=== PATIENT | female | born 1965 | race Caucasian/White ===

== ENCOUNTER 2016-06-15 10:29 | Emergency (ER) | payer BC ==
[2016-06-15 10:39] VITALS: TEMP 97.6; BMI 47.1
--- NOTE | 2016-06-15 10:57 | EDPRACDOC ---
- General Information Chief Complaint: Neuro Symptoms/Deficits Stated Complaint: SYNCOPAL Time Seen by Provider: 06/15/16 10:31 Information Source: Patient, [employer] Mode Of Arrival: Ambulance Home Medications: Home Medications Albuterol Sulfate 2 puff IH Q4-6H PRN 03/31/13 Cholecalciferol [Vitamin D3 (cholecalciferol)] 1,000 units PO BID 03/31/13 Omeprazole [Prilosec] 40 mg PO BID 03/31/13 Pravastatin [Pravachol] 40 mg PO HS 03/31/13 Duloxetine [Cymbalta] 30 mg PO TID 12/24/15 Fluticasone/Vilanterol [Breo Ellipta 100-25 Mcg INH] 1 each IH DAILY 12/24/15 Hydrocodone/Acetaminophen [Hydrocodon-Acetaminophn 10-325] 1 tab PO TID PRN Oxybutynin [Ditropan] 5 mg PO BID 12/24/15 Albuterol Sulfate Nebs [Proventil, Ventolin] 3 ml INH BID PRN 12/29/15 Aspirin [Aspirin EC] 81 mg PO DAILY 06/15/16 Clonazepam [Klonopin] 1 mg PO .SEE COMMENTS 06/15/16 Cyclobenzaprine HCl [Amrix] 15 mg PO DAILY 06/15/16 Gabapentin [Neurontin] 300 mg PO TID 06/15/16 Ibuprofen Tablet [Motrin] 800 mg PO TID PRN 06/15/16 Nebulizer [Erapid Nebulizer] 1 each MC .UNKNOWN 06/15/16 Topiramate [Topamax] 150 mg PO HS 06/15/16 Allergies/Adverse Reactions: Allergies Allergy/AdvReac Type Severity Reaction Status Date / Time No Known Allergies Allergy Verified 06/15/16 10:39 - History of Present Illness Onset: THIS AM Medications/Treatment [employer] REPRES[employer]IVE Meds/Treatments Given O2 via Cannula EMS Treatment ALS IV Yes HPI: PT PRESENTS AFTER SYNCOPAL EVENT WHILE AT HER PCP'S OFFICE. SHE HAS BEEN FEELING FATIGUED FOR QUITE A NUMBER OF MONTHS PRIOR TO THIS. RECENTLY HER ASPIRIN AND BETA OTILIO WERE STOPPED BY CARDIOLOGY. Syncopal phase:: Reports: At Rest Postsyncopal phase:: Reports: Rapid recovery Associated Signs/Symptoms: Denies: Abdominal pain, Chest pain, Diarrhea, Fever, Vomiting - Treatment Prior to ED Arrival Reported Medications/Treatment [employer] REPRESENT[employer]IVE Meds/Treatments Given O2 via Cannula EMS Treatment ALS IV Yes ED Past Medical History - History Reviewed Yes Nurses notes reviewed and agree except as marked - Patient Medical History Cardiac History: Reports: Hypertension, Hypercholesterolemia Respiratory History: Reports: Asthma, COPD. Denies: Pneumonia GI/ History: Reports: Kidney Stones, Gastroesophageal Reflux Musculoskeletal History: Reports: Arthritis Psychological History: Reports: Depression, Anxiety Systemic History: Denies: Cancer, Anemia Surgical History: Reports: Hysterectomy - Family Medical History Reports: Diabetes (MATERNAL FAMILY). Denies: Hypertension, Cancer, Stroke, Cardiac Disorders - Social Medical History Smoking Status: Heavy tobacco smoker (5 or more cigarettes/day or daily pipe/ cigar) Lives In: Home EDM Review of Systems - Review of Systems ROS Negative Except as Marked: Yes All systems reviewed and were negative except as marked Constitutional: Fatigue, Weakness. negative: Fever Respiratory: negative: Cough, Shortness of Breath, Wheezing Cardiovascular: Syncope. negative: Chest Pain Gastrointestinal: negative: Pain, Vomiting - Physical Exam Constitutional: Alert Oriented to: Time, Person, Place Last recorded Vital Signs: Last Vital Signs Temp 97.6 F 06/15/16 10:30 Pulse 89 06/15/16 10:30 Resp 22 06/15/16 10:30 BP 150/77 06/15/16 10:30 Pulse Ox 99 06/15/16 10:30 Oxygen Pulse Oxygen Saturation 99 O2 Device Oxygen Flow Rate 2 Fraction of Inspired Oxygen ( FIO2) - HEENT Head: negative: Deformity, Laceration Eye Exam: negative: Conjunctival Injection, Pale Conjunctiva Oropharynx: negative: Membranes Dry Nose: negative: Congestion, Discharge Neck: negative: Limited ROM - Respiratory/Cardiovascular Respiratory: Normal - CTA. negative: Accessory Muscle Use, Diminished, Tachypnea Cardiovascular: negative: Bradycardia, Tachycardia, Irregular - GI Auscultation: Normal Palpation: Normal Tenderness: Non tender - Musculoskeletal Extremities: Pedal Pulse (PALPABLE), Radial Pulse (PALPABLE) - Integumentary Skin: Warm, Dry. negative: Rash - Neurologic Memory Impaired: Normal Motor Function: Normal Mood Description: Anxious Perception: Normal - Results 06/15/16 11:10 06/15/16 11:10 - EKG EKG #1 EKG Time: 10:36 -: Yes EKG interpreted by me Rate: bpm: 92 Rhythm: NSR Decision Time to Discharge: 14:52 - Departure Yes I personally saw and evaluated the patient. Disposition: Home Condition: Stable Final Diagnosis: Syncope Qualifiers: Syncope type: unspecified Qualified Code(s): R55 - Syncope and collapse Instructions: Syncope (ED) Education/Counseling Given To: Patient Education/Counseling Given Regarding: Diagnosis, Treatment, Prognosis, Follow Up
[2016-06-15] MEDS ORDERED: Pharmacy Review for Metformin - IV Contrast Given SCH (11:00)
[2016-06-15 11:40] LABS: AUTOMATED BASOPHIL 0.8 % (0-2); AUTOMATED EOSINOPHIL 2.2 % (0-5); AUTOMATED LYMPH 31.2 % (17-44); AUTOMATED MONOCYTE 7.5 % (3-10); AUTOMATED NEUTROPHIL 58.3 % (45-76); MPV 8.7 fL (7.4-10.4)
[2016-06-15 11:53] LABS: PARTIAL THROMB. TIME 23.1 SEC (22-35)
[2016-06-15 11:55] LABS: BLOOD UREA NITROGEN 16 MG/DL (7-17); CALCIUM 9.8 MG/DL (8.4-10.2); CALCULATED OSMOLALITY 276 MOs/Kg (270-290); CHLORIDE 107 mEq/L (98-107); CPK TOTAL WITH POSSIBLE MB 286 IU/L (30-134); GLUCOSE 95 MG/DL (70-99); SODIUM LEVEL 143 mEq/L (137-146); TOTAL PROTEIN 7.7 G/DL (6.3-8.2)
[2016-06-15 12:15] LABS: CPKMB 2.8 ng/mL (0-4.5)
[2016-06-15 12:23] LABS: LEUKOCYTES/URINE NEG (NEGATIVE); NITRITE/URINE NEG (NEGATIVE); RBC/URINE 0-2 (0-5); URINE OCCULT BLOOD NEG (NEG/TRACE)
--- NOTE | 2016-06-15 12:49 | DIRPT ---
CLINICAL DATA: Chest pain for 1-2 days, syncope, hypertension EXAM: CT ANGIOGRAPHY CHEST WITH CONTRAST TECHNIQUE: Multidetector CT imaging of the chest was performed using the standard protocol during bolus administration of intravenous contrast. Multiplanar CT image reconstructions and MIPs were obtained to evaluate the vascular anatomy. CONTRAST: 80 cc Isovue 370 IV. COMPARISON: None FINDINGS: Aorta normal caliber without aneurysm or dissection. Beam hardening artifacts from dense contrast in SVC. Pulmonary arteries well opacified and patent. No evidence of pulmonary embolism. Few normal size thoracic nodes without thoracic adenopathy. Asymmetric inferior poles of the thyroid lobes larger on LEFT. Visualized upper abdomen normal appearance. Lungs clear. No pulmonary infiltrate, pleural effusion or pneumothorax. No acute osseous findings. Review of the MIP images confirms the above findings. IMPRESSION: No evidence of pulmonary embolism. No acute intra thoracic abnormalities. Electronically Signed By: Lionel Hastings M.D. On: 06/15/2016 12:47
[2016-06-15] MEDS ORDERED: OXYCODONE HCL 5 MG TABLET PO STA (13:10)
[2016-06-15 15:19] VITALS: BP 144/67; PULSE 90
== END 2016-06-15 15:18 | disposition home or self-care (01) ==
LOC: ED 10:29
DX: R55 Syncope and collapse (principal)
CPT/HCPCS: 36415; 71275; 80053; 81001; 82550; 82553; 83605; 84484; 85025; 85610; 85730; 87040; 87086; 93005; 99284; A9698; J3490